=== PATIENT | male | born 1985 | race African-American/Black ===

== ENCOUNTER 2020-11-22 09:50 | Emergency (ER) | payer OTHER ==
[~2020-11-22] VITALS: Ht 170.2 cm; Wt 75.3 kg
[2020-11-22] MEDS ORDERED: NS 1,000 ML IV ONE (11:00)
[2020-11-22] MEDS ORDERED: ONDANSETRON 4MG/2ML VIAL IV ONE (11:00)
[2020-11-22] MEDS ORDERED: MORPHINE 4 MG/ML 1ML VIAL/SYRINGE (J2270) IV ONE (11:00)
[2020-11-22 11:12] LABS: BASO % 0.5 % (0.0-1.0); EOS # 0.2 10^3/uL (0.0-0.5); EOS % 3.9 % (0.0-3.0); HEMATOCRIT 44.1 % (42.0-52.0); HEMOGLOBIN 14.5 g/dl (13.5-17.5); LYMPH # 1.9 10^3/uL (1.5-5.0); LYMPH % 49.4 % (24.0-44.0); MEAN CORPUSCULAR HEMOGLOBIN 28.3 pg (27.0-33.0); MEAN CORPUSCULAR HGB CONC 32.9 g/dl (32.0-36.5); MONO # 0.3 10^3/uL (0.0-0.8); MONO % 8.3 % (0.0-5.0); NEUTROPHILS # 1.5 10^3/uL (1.5-8.5); NEUTROPHILS % 37.9 % (36.0-66.0); PLATELET COUNT, AUTOMATED 255 10^3/uL (150-450); RED BLOOD COUNT 5.13 10^6/uL (4.30-6.10); WHITE BLOOD COUNT 3.9 10^3/uL (4.0-10.0)
[2020-11-22] MEDS ORDERED: KETOROLAC 30 MG/ML 1ML VIAL IV ONE ×2 (11:45→14:00)
[2020-11-22 11:47] LABS: ALBUMIN 3.8 GM/DL (3.2-5.2); BILIRUBIN,DIRECT 0.2 MG/DL (0.0-0.2); TOTAL PROTEIN 7.1 GM/DL (6.4-8.2)
[2020-11-22] MEDS ORDERED: ISOVUE-370 76% 100ML VIAL As Ordered ONE (11:57)
--- NOTE | 2020-11-22 12:26 | REP ---
INDICATION: right abd pain possible appy COMPARISON: None. TECHNIQUE: CT Scan of the abdomen and pelvis was performed with intravenous administration of 100 cc of Isovue 370, without oral contrast. Sagittal and coronal reconstruction images are performed. FINDINGS: Lung bases: Unremarkable. Liver: Normal Gallbladder: Unremarkable. Spleen: Normal. Adrenals: Normal. Pancreas: Normal. Kidneys: Normal. Small and large bowel: Unremarkable. Free fluid: None. Abdominal aorta: No aneurysm or dissection. Adenopathy: None. Appendix: Not inflamed. Osseous structures: Unremarkable. Pelvis: No mass. IMPRESSION: Negative CT abdomen and pelvis. <Electronically signed by Oscar Carty > 11/22/20 [id number]
[2020-11-22] MEDS ORDERED: KETO10TAB PO (14:09)
[2020-11-22 14:26] VITALS: BP 133/72
== END 2020-11-22 14:29 | disposition home or self-care (01) ==
LOC: M ED 09:50
DX: R10.11 Right upper quadrant pain (principal); R10.31 Right lower quadrant pain
CPT/HCPCS: 74177; 80047; 80076; 85025; 96361; 96374; 96375; 99283; J1885; J2270; J2405; Q9967

== ENCOUNTER 2021-09-10 19:09 | Emergency (ER) | payer OTHER ==
[~2021-09-10] VITALS: Ht 198.1 cm; Wt 77.7 kg
[~2021-09-10 19:09] MED LIST: KETO10TAB PO
[2021-09-11] MEDS ORDERED: ACET-683 PO (12:01)
== END 2021-09-10 19:10 | disposition left against medical advice (07) ==
LOC: M ED 19:09
DX: Z53.21 Procedure and treatment not carried out due to patient leaving prior to being seen by health care provider (principal)

== ENCOUNTER 2021-09-10 22:54 | Inpatient (IN) | payer OTHER ==
[~2021-09-10] VITALS: Ht 198.1 cm; Wt 79.5 kg
[2021-09-11 00:25] LABS: RSV AMPLIFICATION NEGATIVE (NEGATIVE)
[2021-09-11 07:25] LABS: HEMATOCRIT 43.8 % (42.0-52.0); HEMOGLOBIN 14.5 g/dl (13.5-17.5); MEAN CORPUSCULAR HEMOGLOBIN 28.8 pg (27.0-33.0); MEAN CORPUSCULAR HGB CONC 33.1 g/dl (32.0-36.5); MEAN CORPUSCULAR VOLUME 86.9 fl (80.0-96.0); RED BLOOD COUNT 5.04 10^6/uL (4.30-6.10); WHITE BLOOD COUNT 4.7 10^3/uL (4.0-10.0)
[2021-09-11 07:54] LABS: ALBUMIN 2.9 GM/DL (3.2-5.2); ALT/SGPT 39 U/L (12-78); BILIRUBIN,DIRECT 0.5 MG/DL (0.0-0.2); BILIRUBIN,TOTAL 2.2 MG/DL (0.2-1.0); BLOOD UREA NITROGEN 20 MG/DL (7-18); CALCIUM LEVEL 8.9 MG/DL (8.5-10.1); CARBON DIOXIDE LEVEL 30 MEQ/L (21-32); CHLORIDE LEVEL 102 MEQ/L (98-107); CREATININE FOR GFR 1.21 MG/DL (0.70-1.30); GLOMERULAR FILTRATION RATE > 60.0 (>60); GLUCOSE, FASTING 88 MG/DL (70-100); POTASSIUM SERUM 3.6 MEQ/L (3.5-5.1); SODIUM LEVEL 137 MEQ/L (136-145); TOTAL PROTEIN 7.7 GM/DL (6.4-8.2)
[2021-09-11 08:02] LABS: PLATELET COUNT, AUTOMATED 92 10^3/uL (150-450)
[2021-09-11 08:05] LABS: ATYPICAL LYMPH 5 % (0-5); EOSINOPHILS 2 % (0-3); LYMPHOCYTES 28 % (16-44); MONOCYTES 20 % (0-5); NEUTROPHILS 45 % (28-66); PLATELET ESTIMATE DECREASED (NORMAL)
[2021-09-11 08:08] LABS: ANISOCYTOSIS 1+; POLYCHROMASIA 1+
[2021-09-11] MEDS ORDERED: ONDANSETRON 4MG/2ML VIAL IV ONE (08:10)
[2021-09-11] MEDS ORDERED: NS 1,000 ML IV ONE (08:10)
[2021-09-11] MEDS ORDERED: ACETAMINOPHEN 325 MG TAB PO ONE (08:10)
--- NOTE | 2021-09-11 08:33 | REP ---
INDICATION: fever, headache x 7 days, getting worse COMPARISON: None. TECHNIQUE: Axial noncontrast images from the skull base to the vertex with coronal reformations. This CT examination was performed using the following dose reduction techniques: Automated exposure control, adjustment of mA and/or kv according to the patient's size, and use of iterative reconstruction technique. FINDINGS: The ventricles, sulci, and cisterns are normal in position and appearance. Carty-white differentiation is maintained. No acute intracranial hemorrhage, mass/mass effect, pathology or trauma/injury. No evidence for acute infarction. No extra-axial fluid collection. Calvarium is intact. Paranasal sinuses and mastoid air cells are clear. IMPRESSION: Normal noncontrast head CT. No evidence for acute intracranial pathology or trauma/injury. <Electronically signed by Aman Ojeda > 09/11/21 [id number]
--- NOTE | 2021-09-11 08:54 | REP ---
INDICATION: RUQ pain, fever, n/v/d COMPARISON: None. TECHNIQUE: Real time marie scale ultrasound examination using curved array transducer. FINDINGS: Liver is normal in contour, size, and echogenicity without focal hepatic lesions identified. Pancreas is incompletely evaluated due to interposed bowel gas. The gallbladder demonstrates layering and tumefactive sludge. No wall thickening or pericholecystic fluid is appreciated. No biliary ductal dilatation is appreciated and the common bile duct measures 4.0 mm diameter. Right kidney is normal in reniform shape without hydronephrosis and measures 10.1 x 5.5 x 4.2 cm cm. No ascites in the visualized right upper quadrant. IMPRESSION: Cholelithiasis. <Electronically signed by Aman Ojeda > 09/11/21 [id number]
--- NOTE | 2021-09-11 08:55 | REP ---
INDICATION: fever, cough, vomiting COMPARISON: None. TECHNIQUE: PA and lateral. FINDINGS: The mediastinum and cardiac silhouette are normal. The lung hensley are clear and without acute consolidation, effusion, or pneumothorax. The skeletal structures are intact and normal. IMPRESSION: No acute cardiopulmonary process. <Electronically signed by Aman Ojeda > 09/11/21 0816
[2021-09-11] MEDS ORDERED: MALARONE 250/100MG (ATOVAQUONE/PROGUANIL) TABLET PO SCH (09:00)
[2021-09-11] MEDS ORDERED: MALARONE 250/100MG (ATOVAQUONE/PROGUANIL) TABLET PO STA (11:48)
[2021-09-11] MEDS ORDERED: ACET-683 PO (12:01)
[2021-09-11] MEDS ORDERED: HOME MED LIST COMPLETE! XX SCH (12:05)
--- OUTSIDE RECORDS SUMMARY | 2021-09-11 12:40 | CCD ---
Author Author [facility] Organization [facility] Address Unknown Phone Unavailable Care Team Providers Care Sharepoint Solutions Developer Name Role Phone Olivier Trinidad MD Unavailable Unavailable Amos, Olivier Oliveira MD Unavailable Unavailable Amos, Olivier Oliveira MD Unavailable Unavailable Amos, Olivier Oliveira MD Unavailable Unavailable Amos, Olivier Oliveira MD Unavailable Unavailable Amos, Olivier Oliveira MD Unavailable Unavailable Amos, Olivier Oliveira MD Unavailable Unavailable Amos, Olivier Oliveira MD Unavailable Unavailable Amos, Olivier Oliveira MD Unavailable Unavailable Amos, Olivier Oliveira MD Unavailable Unavailable Amos, Olivier Oliveira MD Unavailable Unavailable Amos, Olivier Oliveira MD Unavailable Unavailable Amos, Olivier Oliveira MD Unavailable Unavailable Amos, Olivier Oliveira MD Unavailable Unavailable Amos, Olivier Oliveira MD Unavailable Unavailable AmosOlivier MD Unavailable Unavailable Amos, Olivier Oliveira MD Unavailable Unavailable Amos, Olivier Oliveira MD Unavailable Unavailable Amos, Olivier Oliveira MD Unavailable Unavailable Amos, Olivier Oliveira MD Unavailable Unavailable Amos, Olivier Oliveira MD Unavailable Unavailable Amos, Olivier Oliveira MD Unavailable Unavailable Amos, Olivier Oliveira MD Unavailable Unavailable Amos, Olivier Oliveira MD Unavailable Unavailable Amos, Olivier Oliveira MD Unavailable Unavailable AmosOlivier MD Unavailable Unavailable AmosOlivier hopson MD Unavailable Unavailable AmosOlivier MD Unavailable Unavailable AmosOlivier MD Unavailable Unavailable AmosOlivier MD Unavailable Unavailable AmosOlivier MD Unavailable Unavailable AmosOlivier MD Unavailable Unavailable AmosOlivier MD Unavailable Unavailable AmosOlivier MD Unavailable Unavailable AmosOlivier hopson MD Unavailable Unavailable Amos, Olivier Oliveira MD Unavailable Unavailable Amos, Olivier Oliveira MD Unavailable Unavailable Amos, Olivier Oliveira MD Unavailable Unavailable Amos, Olivier Oliveira MD Unavailable Unavailable Amos, Olivier Oliveira MD Unavailable Unavailable Amos, Olivier Oliveira MD Unavailable Unavailable Amos, Olivier Oliveira MD Unavailable Unavailable Re-disclosure Warning The records that you are about to access may contain information from federally-assisted alcohol or drug abuse programs. If such information is present, then the following federally mandated warning applies: This information has been disclosed to you from records protected by federal confidentiality rules (42 CFR part 2). The federal rules prohibit you from making any further disclosure of this information unless further disclosure is expressly permitted by the written consent of the person to whom it pertains or as otherwise permitted by 42 CFR part 2. A general authorization for the release of medical or other information is NOT sufficient for this purpose. The Federal rules restrict any use of the information to criminally investigate or prosecute any alcohol or drug abuse patient.The records that you are about to access may contain highly sensitive health information, the redisclosure of which is protected by Article 27-F of the [facility] Public Health law. If you continue you may have access to information: Regarding HIV / AIDS; Provided by facilities licensed or operated by the [facility] Office of Mental Health; or Provided by the [facility] Office for People With Developmental Disabilities. If such information is present, then the following [facility] mandated warning applies: This information has been disclosed to you from confidential records which are protected by state law. State law prohibits you from making any further disclosure of this information without the specific written consent of the person to whom it pertains, or as otherwise permitted by law. Any unauthorized further disclosure in violation of state law may result in a fine or mcfp sentence or both. A general authorization for the release of medical or other information is NOT sufficient authorization for further disc losure. Encounters Encounter Providers Location Date Indications Data Source(s ) Outpatient Attender: Tee Trinidad MD 2020 10:26:00 AM EDT - 05/02/2021 10:26:00 AM EDT [facility] Medications No Information Insurance Providers Payer name Policy type / Coverage type Policy ID Covered republican ID Covered republican's relationship to arevalo Policy Arevalo Plan Information [facility] [employer] [id number] SP [id number] [facility] [place] [place] [id number] 18 [id number] [employer] [facility] [place] [id number] S [id number] Problems, Conditions, and Diagnoses No Information Surgeries/Procedures No Information Results ID Date Data Source [id number] 07/31/2021 08:32:00 PM EDT [facility] Name Value Range Interpretation Code Description Data Niurka rce(s) Supporting Document(s) SARS coronavirus 2 RNA [Presence] in Res piratory specimen by ARIC with probe detection Not Detected [facility] This lab was ordered by [facility] and re ported by [employer]. ID Date Data Source [id number] 07/31/2021 04:32:00 PM EDT [facility] Name Value Range Interpretation Code Description Data Niurka rce(s) Supporting Document(s) SARS-CoV-2 NEGATIVE [facility] This lab was ordered by [facility] and reported by [facility]. ID Date Data Source [id number] 06/11/2021 07:13:00 PM EDT [facility] Name Value Range Interpretation Code Description Data Niurka rce(s) Supporting Document(s) SARS coronavirus 2 RNA [Presence] in Res piratory specimen by ARIC with probe detection anterior nasal swabs [facility] This lab was ordered by [facility] and re ported by [employer]. ID Date Data Source [id number] 06/11/2021 03:13:00 PM EDT [facility] Name Value Range Interpretation Code Description Data Niurka rce(s) Supporting Document(s) SARS-CoV-2 NEGATIVE [facility] This lab was ordered by [facility] and reported by [facility]. ID Date Data Source [id number] 04/16/2021 10:20:00 AM EDT [facility] Name Value Range Interpretation Code Description Data Niurka rce(s) Supporting Document(s) SARS-CoV-2 NEGATIVE [facility] This lab was ordered by [facility] and reported by [facility]. ID Date Data Source [id number] 04/16/2021 12:00:00 AM EDT [facility] Name Value Range Interpretation Code Description Data Niurka rce(s) Supporting Document(s) SARS-CoV-2 RT-PCR negative [facility] This lab was ordered by [facility] and re ported by [employer]. ID Date Data Source [id number] 04/13/2021 12:00:00 AM EDT [facility] Name Value Range Interpretation Code Description Data Niurka rce(s) Supporting Document(s) SARS-CoV2 Rapid Antigen Negative [facility] This lab was ordered by [facility] and reported by [facility]. Procedure Social History No Information Vital Signs ID Date Data Source UNK Name Value Range Interpretation Code Description Data Source(s) Systolic blood pressure 122 mm[Hg] 122 mm[Hg] [facility] ([facility]) Diastolic blood pressure 76 mm[Hg] 76 mm[Hg] [facility] ([facility]) Heart rate 77 /min 77 /min [facility] ([facility]) Body temperature 98.2 [degF] 98.2 [degF] [facility] ([facility]) Respiratory rate 16 /min 16 /min [facility] ( [facility]) Oxygen saturation in Arterial blood by Pulse oximetry 98 % 98 % [facility] ([facility]) Body weight 132.12 [lb_av] 132.12 [lb_av] [facility] ([facility]) Body weight 59.932 kg 59.932 kg [facility] ([facility]) Body height 66 [in_i] 66 [in_i] [facility] ([facility]) 5'6" Body mass index (BMI) [Ratio] 21.3 kg/m2 21.3 k g/m2 [facility] ([facility]) Body surface area Derived from formula 1.68 m2 1.68 m2 [facility] ([facility])
[2021-09-11 12:58] LABS: INR 1.16; PROTHROMBIN TIME 15.2 SECONDS (12.7-14.5)
[2021-09-11 12:59] LABS: PARTIAL THROMBOPLASTIN TIME 35.5 SECONDS (25.9-37.0)
[2021-09-11] MEDS: SUCRALFATE SUSP 1GM/10ML UD PO SCH ×3 (13:04→20:42)
[2021-09-11] MEDS: ENOXAPARIN 40MG/0.4ML SYRINGE (J1650 PER 10MG) SC SCH (13:04)
--- NOTE | 2021-09-11 14:00 | HPEPDOC ---
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 History of Present Illness Mr. Pena is a 36-year-old male who is here for fever, poor appetite, and nausea and vomiting and found to have malaria. Patient tells me that he travels to [place] on August 09 to visit family. He took prophylactic doxycycline (1 tablet a day). While there, he did get bitten by mosquitoes. He returned on August 25 and continued to take prophylactic doxycycline until September 06. He for started having symptoms on September 04. It initially started as a head ache. He started to have fevers on September 07. On September 09, he had nausea, vomiting, and loss of taste. He told me that he was not able to keep food down. On September 10, he came in to the ED for evaluation. He had developed eye pain with eye movement and a bumpy rash on the right corner of the mouth. While in the ED, his vital signs has been stable and he had been afebrile. Malaria smear positive for Plasmodium falciparum. No leukocytosis or anemia, but his total bilirubin is elevated (mostly indirect). BUN elevated at 20, creatinine slightly elevated at 1.21. When I saw patient, he appeared comfortable. He preferred to have the light off, but is able to tuck in chin into his chest. He was moving all limbs without difficulty. Denies any chest pain, dyspnea, diarrhea, or dysuria. He had some right sided abdominal pain. He denied any history of HIV or sickle cell disease or trait in himself or parents. ED had reached out to ID. Recommending starting patient on atovaquone/proguanil (Malarone). Patient will be admitted for malaria infection. Home Medications Scheduled PRN Acetaminophen (Acetaminophen) 500 Mg Tablet, 1,000 MG PO Q6H PRN for PAIN LEVEL 1-5, (Reported) Allergies Coded Allergies: No Known Allergies (Unverified , 11/22/20) Past Medical History Medical History 1. Remote history of malaria infection in the past Surgical History 1. Hernia repair Family History Denies any medical history in parents. Denies sickle cell/sickle cell trait. Social History * Smoker: Denies Alcohol: Denies Drugs: denies A-FIB/CHADSVASC A-FIB History Current/History of A-Fib/PAF?: No Review of Systems Constitutional: Reports: Fever, Malaise Eyes: Reports: Other (Pain with eye movement) ENT: Reports: Head Aches Skin: Reports: Rash (Corner of the right mouth) Pulmonary: Denies: Dyspnea, Cough Cardiovascular: Denies: Chest Pain Gastrointestinal: Reports: Nausea, Vomiting, Abdominal Pain, Other Symptoms (Unable to tolerate oral); Denies: Diarrhea Genitourinary: Denies: Dysuria Hematologic: Denies: Bruising Neurological: Denies: Numbness Psych: Denies: Anxiety, Depression Physical Examination General Exam: Positive: Alert, Cooperative Eye Exam: Positive: Other Eye Symptoms (Mild icterus with erythema. Painful to move eyes ) ENT Exam: Positive: Atraumatic Neck Exam: Positive: Supple Chest Exam: Positive: Clear to auscultation; Negative: Rales, Rhonchi, Wheezing Heart Exam: Positive: Rate Normal, Regular Rhythm Abdomen Exam: Positive: Normal bowel sounds, Soft; Negative: Tenderness Extremity Exam: Negative: Edema Neuro Exam: Positive: Normal Speech Psych Exam: Positive: Mental status NL, Mood NL Vital Signs Vital Signs Date Time Temp Pulse Resp B/P (MAP) Pulse Ox O2 Delivery O2 Flow Rate FiO2 09/11/21 11:25 105/55 (72) 09/11/21 10:43 98.0 09/11/21 09:57 86 15 99 Room Air Laboratory Data Labs 24H Laboratory Tests 2 09/10/21 23:21: Coronavirus (COVID-19)(PCR) NEGATIVE, Influenza Type A (RT-PCR) NEGATIVE, Influenza Type B (RT-PCR) NEGATIVE, Respiratory Syncytial Virus (PCR) NEGATIVE 09/11/21 07:10: Neutrophils (%) (Auto) , Nucleated Red Blood Cells % (auto) 0.0, Neutrophils 45, Lymphocytes (Manual) 28, Monocytes (Manual) 20H, Eosinophils (Manual) 2, Atypical Lymphocytes 5, Red Blood Cell Morphology PARASITES, Polychromasia 1+, Anisocytosis 1+, Platelet Estimate DECREASED, Immature Platelet Fraction 8.9, Anion Gap 5L, Glomerular Filtration Rate > 60.0, Calcium Level 8.9, Total Bilirubin 2.2H, Direct Bilirubin 0.5H, Aspartate Amino Transf (AST/SGOT) 32, Alanine Aminotransferase (ALT/SGPT) 39, Alkaline Phosphatase 68, Total Protein 7.7, Albumin 2.9L, Albumin/Globulin Ratio 0.6 09/11/21 10:52: Lactic Acid Level 1.1 09/11/21 11:15: Urine Color YELLOW, Urine Appearance HAZY, Urine pH 6.0, Urine Specific [place] 1.019, Urine Protein 1+H, Urine Glucose (UA) NEGATIVE, Urine Ketones 1+H, Urine Blood NEGATIVE, Urine Nitrite NEGATIVE, Urine Bilirubin NEGATIVE, Urine Urobilinogen 4.0H, Urine Leukocyte Esterase NEGATIVE, Urine WBC (Auto) 2, Urine RBC (Auto) 1, Urine Hyaline Casts (Auto) 0, Urine Bacteria (Auto) NEGATIVE, Urine Squamous Epithelial Cells 0, Urine Mucus (Auto) SMALL, Urine Sperm (Auto) 09/11/21 12:27: Prothrombin Time 15.2H, Prothromb Time International Ratio 1.16, Activated Partial Thromboplast Time 35.5 CBC/BMP Laboratory Tests 09/11/21 07:10 Microbiology Microbiology 09/11/21 Blood Culture, Received Pending 09/11/21 Blood Culture, Received Pending 09/11/21 Malaria Smear (MARELY) - Final, Complete Plasmodium Falciparum Assessment/Plan Mr. Pena is a 36-year-old male who is here for fever, poor appetite, and nausea and vomiting and found to have malaria. Patient had taken Doxycycline for malaria prophylaxis as a travel to [place]. Despite prophylaxis, he developed malaria. ID was consulted, recommendations appreciated. Patient started on Malarone. Plan / VTE VTE Prophylaxis Ordered?: Yes Plan Plan 1. Malaria infection ID consulted, recommendations appreciated Continue Malarone day 1 2. Anorexia secondary to nausea and vomiting Start patient on a clear liquid diet and advance as tolerated IV fluids Start Carafate and famotidine 3. Hyperbilirubinemia Total bilirubin elevated at 2.2. Most likely secondary to hemolysis from malaria Monitor hemoglobin We will check LDH and haptoglobin tomorrow 4. DVT prophylaxis Lovenox Disposition: Pending clinical improvement SARAH LOPEZ DO Sep 11, 2021 14:00
[2021-09-11 14:43] VITALS: BP 101/64
[2021-09-11] MEDS: ACETAMINOPHEN TAB 650MG DOSE (2X325MG) PO PRN (14:58)
[2021-09-11] MEDS: NS 1,000 ML IV SCH ×2 (14:59→23:53)
[2021-09-11] MEDS ORDERED: ACETAMINOPHEN TAB 650MG DOSE (2X325MG) PO ONE (17:45)
--- NOTE | 2021-09-11 18:37 | CR.PDOC ---
General Date of Consultation: Sep 11, 2021 Referring Provider: SARAH LOPEZ DO Attending Physician: Luis Medrano MD Consultation REASON FOR CONSULTATION/CHIEF COMPLAINT: Malaria due to Plasmodium Falciparum. HISTORY OF PRESENT ILLNESS: Boni is a 36 year old male who presented to the emergency room complaining of fever, headache, nausea, and vomiting. He recently travelled to [facility] to visit family from 08/10 to 08/25, during which time he took Doxycycline for Malaria prophylaxis one pill per day from 08/10 to 09/07. On 09/04 he began to suffer from fevers and headaches. These occur together and are intermittent and cyclic in nature. He noticed loss of taste sensation on 09/06 and has been unable to eat without vomiting since 09/08. He has also felt weak and fatigued for the past day, but says that he was able to do his normal activities up until then. He was admitted for a diagnosis of Malaria. ALLERGIES: Please see below. HOME MEDICATIONS: Please see below. PAST MEDICAL HISTORY: 1. Past Malaria infection 2005 PAST SURGICAL HISTORY: 1. Hernia repair SOCIAL HISTORY: Marital status and/or living arrangements: , lives in [place]. He is in the . Children: Yes, but they live in [place] Employment: Tobacco use: Denies ETOH: Denies Illicit drug use: Denies IV drug use: Denies REVIEW OF SYSTEMS: CONSTITUTIONAL: Has fevers, chills, and fatigue. HEENT: Has headache and loss of taste, denies vision changes, sore throat. CARDIOVASCULAR: Denies chest pain RESPIRATORY: Denies shortness of breath GASTROINTESTINAL: Has nausea and vomiting, denies abdominal pain and loose stools. SKIN: Has a rash on his face. PHYSICAL EXAMINATION: VITAL SIGNS: Please see below. GENERAL APPEARANCE: Thin male laying in bed in no acute distress. He is alert and oriented and responds appropriately to all questions. HEENT: Non traumatic normocephalic. He has a bumpy rash near his mouth. RESPIRATORY: CTA CARDIOVASCULAR: Normal rate and rhythm without murmurs. ABDOMEN: Bowel sounds present. Non-tender and non-distended. LABORATORY DATA: Please see below. Positive smear for Plasmodium Falciparum. His WBC and RBC counts were both within normal ranges. His total bilirubin was elevated at 2.2. ASSESSMENT/PLAN: He was diagnosed with a breakthrough infection with Plasmodium Falciparum despite prophylaxis with Doxycycline until days after his return from [facility]. It is recommended to take Doxycycline for 4 weeks after exposure for Malaria prophylaxis and his shortened course may have contributed to his illness. His condition has no severe features at this time. 1. Treat with Malarone 250-100mg 4 tabs daily for 3 days. 2. Discharge home tomorrow 3. Follow up after discharge to assess recovery and recheck bilirubin and liver function tests Vital Signs/I&O Vital Signs Date Time Temp Pulse Resp B/P (MAP) Pulse Ox O2 Delivery O2 Flow Rate FiO2 09/11/21 17:32 102.9 09/11/21 14:43 83 16 101/64 (76) 100 Room Air Laboratory Data Labs 24H Laboratory Tests 2 09/10/21 23:21: Coronavirus (COVID-19)(PCR) NEGATIVE, Influenza Type A (RT-PCR) NEGATIVE, Influenza Type B (RT-PCR) NEGATIVE, Respiratory Syncytial Virus (PCR) NEGATIVE 09/11/21 07:10: Neutrophils (%) (Auto) , Nucleated Red Blood Cells % (auto) 0.0, Neutrophils 45, Lymphocytes (Manual) 28, Monocytes (Manual) 20H, Eosinophils (Manual) 2, Atypi sophie Lymphocytes 5, Red Blood Cell Morphology PARASITES, Polychromasia 1+, Anisocytosis 1+, Platelet Estimate DECREASED, Immature Platelet Fraction 8.9, Anion Gap 5L, Glomerular Filtration Rate > 60.0, Calcium Level 8.9, Total Bilirubin 2.2H, Direct Bilirubin 0.5H, Aspartate Amino Transf (AST/SGOT) 32, Alanine Aminotransferase (ALT/SGPT) 39, Alkaline Phosphatase 68, Total Protein 7.7, Albumin 2.9L, Albumin/Globulin Ratio 0.6 09/11/21 10:52: Lactic Acid Level 1.1 09/11/21 11:15: Urine Color YELLOW, Urine Appearance HAZY, Urine pH 6.0, Urine Specific [place] 1.019, Urine Protein 1+H, Urine Glucose (UA) NEGATIVE, Urine Ketones 1+H, Urine Blood NEGATIVE, Urine Nitrite NEGATIVE, Urine Bilirubin NEGATIVE, Urine Urobilinogen 4.0H, Urine Leukocyte Esterase NEGATIVE, Urine WBC (Auto) 2, Urine RBC (Auto) 1, Urine Hyaline Casts (Auto) 0, Urine Bacteria (Auto) NEGATIVE, Urine Squamous Epithelial Cells 0, Urine Mucus (Auto) SMALL, Urine Sperm (Auto) 09/11/21 12:27: Prothrombin Time 15.2H, Prothromb Time International Ratio 1.16, Activated Partial Thromboplast Time 35.5 CBC/BMP Laboratory Tests 09/11/21 07:10 Microbiology Microbiology 09/11/21 Blood Culture, Received Pending 09/11/21 Blood Culture, Received Pending 09/11/21 Malaria Smear (MARELY) - Final, Complete Plasmodium Falciparum Allergies Coded Allergies: No Known Allergies (Unverified , 11/22/20) Home Medications Scheduled PRN Acetaminophen (Acetaminophen) 500 Mg Tablet, 1,000 MG PO Q6H PRN for PAIN LEVEL 1-5 for 5 Days, (Reported) [facility] [place] Sep 11, 2021 18:37
[2021-09-11] MEDS: FAMOTIDINE 20 MG TAB PO SCH (20:42)
[2021-09-11 22:00] VITALS: BP 94/62
[2021-09-11] MEDS ORDERED: NS 500 ML IV ONE (22:40)
--- NOTE | 2021-09-11 23:29 | ECGEPIP ---
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
[2021-09-12 02:48] VITALS: BP 96/60
[2021-09-12 06:00] VITALS: BP 100/60
[2021-09-12 06:43] LABS: HEMATOCRIT 37.1 % (42.0-52.0); MEAN CORPUSCULAR HEMOGLOBIN 28.3 pg (27.0-33.0); MEAN CORPUSCULAR HGB CONC 32.6 g/dl (32.0-36.5); MEAN CORPUSCULAR VOLUME 86.7 fl (80.0-96.0); RED BLOOD COUNT 4.28 10^6/uL (4.30-6.10); WHITE BLOOD COUNT 3.1 10^3/uL (4.0-10.0)
[2021-09-12 06:44] LABS: PLATELET COUNT, AUTOMATED 90 10^3/uL (150-450)
[2021-09-12 06:45] LABS: HEMOGLOBIN 12.1 g/dl (13.5-17.5)
[2021-09-12 07:05] LABS: BLOOD UREA NITROGEN 14 MG/DL (7-18); CARBON DIOXIDE LEVEL 26 MEQ/L (21-32); CHLORIDE LEVEL 108 MEQ/L (98-107); GLOMERULAR FILTRATION RATE > 60.0 (>60); GLUCOSE, FASTING 91 MG/DL (70-100); LDH LACTATE DEHYDROGENASE 313 U/L (87-241); POTASSIUM SERUM 3.4 MEQ/L (3.5-5.1); SODIUM LEVEL 140 MEQ/L (136-145)
[2021-09-12] MEDS ORDERED: POTASSIUM CHLORIDE 10MEQ SR TABLET PO ONE (08:00)
[2021-09-12] MEDS: SUCRALFATE SUSP 1GM/10ML UD PO SCH ×4 (08:25→22:08)
[2021-09-12] MEDS: ONDANSETRON 4MG/2ML VIAL IV PRN (08:27)
[2021-09-12] MEDS: MALARONE 250/100MG (ATOVAQUONE/PROGUANIL) TABLET PO SCH (08:48)
[2021-09-12] MEDS: ENOXAPARIN 40MG/0.4ML SYRINGE (J1650 PER 10MG) SC SCH (09:00)
[2021-09-12] MEDS: NS 1,000 ML IV SCH ×2 (14:05→22:08)
--- NOTE | 2021-09-12 21:08 | IPNPDOC ---
Subjective Date Seen The patient was seen on 09/12/21. Subjective Chief Complaint/HPI Mr. Pena is a 36-year-old male who is here for fever, poor appetite, and nausea and vomiting and found to have malaria. This morning, he was not feeling well. He had fevers throughout the night and into the morning. Objective Physical Examination General Exam: Positive: Alert, Cooperative Eye Exam: Positive: Other Eye Symptoms (Mild icterus with erythema. Painful to move eyes ) ENT Exam: Positive: Atraumatic Neck Exam: Positive: Supple Chest Exam: Positive: Clear to auscultation; Negative: Rales, Rhonchi, Wheezing Heart Exam: Positive: Rate Normal, Regular Rhythm Abdomen Exam: Positive: Normal bowel sounds, Soft; Negative: Tenderness Extremity Exam: Negative: Edema Neuro Exam: Positive: Normal Speech Psych Exam: Positive: Mental status NL, Mood NL Assessment /Plan Assessment Mr. Pena is a 36-year-old male who is here for fever, poor appetite, and nausea and vomiting and found to have malaria. Patient had taken Doxycycline for malaria prophylaxis as a travel to [place]. Despite prophylaxis, he developed malaria. ID was consulted, recommendations appreciated. Patient started on Malarone. Plan/VTE VTE Prophylaxis Ordered?: Yes Plan 1. Malaria infection ID consulted, recommendations appreciated Continue Malarone day 2 2. Anorexia secondary to nausea and vomiting Start patient on a clear liquid diet and advance as tolerated. Patient now at regular diet IV fluids Continue Carafate and famotidine 3. Hyperbilirubinemia Total bilirubin elevated at 2.2. Most likely secondary to hemolysis from malaria Monitor hemoglobin 4. DVT prophylaxis Lovenox Disposition: Pending clinical improvement VS, I&O, 24H, Amena Vital Signs/I&O Vital Signs Date Time Temp Pulse Resp B/P (MAP) Pulse Ox O2 Delivery O2 Flow Rate FiO2 09/12/21 06:00 100.8 94 18 100/60 (73) 99 Room Air I&O- Last 24 Hours up to 6 AM 09/12/21 06:00 Intake Total 3590 ml Output Total 175 ml Balance 3415 ml Laboratory Data 24H LABS Laboratory Tests 2 09/12/21 06:16: Nucleated Red Blood Cells % (auto) 0.0, Anion Gap 6L, Glomerular Filtration Rate > 60.0, Calcium Level 8.0L, Lactate Dehydrogenase 313H CBC/BMP Laboratory Tests 09/12/21 06:16 Microbiology Microbiology 09/11/21 Blood Culture - Preliminary, Resulted No growth after 24 hours . All specim... 09/11/21 Blood Culture - Preliminary, Resulted No growth after 24 hours . All specim... 09/11/21 Malaria Smear ([facility]) - Final, Complete Plasmodium Falciparum SARAH LOPEZ DO Sep 12, 2021 21:08
[2021-09-12 22:00] VITALS: BP 97/55
[2021-09-12] MEDS: FAMOTIDINE 20 MG TAB PO SCH (22:08)
[2021-09-13 06:00] VITALS: BP 95/56
[2021-09-13 06:47] LABS: BLOOD UREA NITROGEN 10 MG/DL (7-18); CALCIUM LEVEL 8.1 MG/DL (8.5-10.1); CARBON DIOXIDE LEVEL 27 MEQ/L (21-32); CHLORIDE LEVEL 112 MEQ/L (98-107); CREATININE FOR GFR 1.09 MG/DL (0.70-1.30); GLOMERULAR FILTRATION RATE > 60.0 (>60); GLUCOSE, FASTING 89 MG/DL (70-100); POTASSIUM SERUM 3.6 MEQ/L (3.5-5.1); SODIUM LEVEL 143 MEQ/L (136-145)
[2021-09-13 07:36] LABS: HEMATOCRIT 37.5 % (42.0-52.0); HEMOGLOBIN 12.3 g/dl (13.5-17.5); MEAN CORPUSCULAR HEMOGLOBIN 28.4 pg (27.0-33.0); MEAN CORPUSCULAR HGB CONC 32.8 g/dl (32.0-36.5); MEAN CORPUSCULAR VOLUME 86.6 fl (80.0-96.0); PLATELET COUNT, AUTOMATED 115 10^3/uL (150-450); RED BLOOD COUNT 4.33 10^6/uL (4.30-6.10); WHITE BLOOD COUNT 3.7 10^3/uL (4.0-10.0)
[2021-09-13] MEDS: SUCRALFATE SUSP 1GM/10ML UD PO SCH (07:49)
[2021-09-13] MEDS: ONDANSETRON 4MG/2ML VIAL IV PRN (07:49)
[2021-09-13] MEDS: ACETAMINOPHEN TAB 650MG DOSE (2X325MG) PO PRN (08:47)
[2021-09-13] MEDS: MALARONE 250/100MG (ATOVAQUONE/PROGUANIL) TABLET PO SCH (08:48)
[2021-09-13] MEDS: ENOXAPARIN 40MG/0.4ML SYRINGE (J1650 PER 10MG) SC SCH (08:48)
[2021-09-13] MEDS ORDERED: ATOV1TAB PO ×2 (09:37→09:39)
[2021-09-13] MEDS ORDERED: ACET-683 PO (09:37)
--- NOTE | 2021-09-13 22:55 | DS.PDOC ---
Discharge Summary General Date of Admission Sep 11, 2021 at 12:20 Date of Discharge Sep 13, 2021 Specialist/Consultants Involve Dr. Mitchell GREY Discharge Summary PROCEDURES PERFORMED DURING STAY: None ADMITTING DIAGNOSES: 1. Malaria infection 2. Anorexia secondary to nausea and vomiting 3. Hyperbilirubinemia DISCHARGE DIAGNOSES: 1. Malaria infection 2. Anorexia secondary to nausea and vomiting 3. 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 HISTORY OF PRESENT ILLNESS: Mr. Pena is a 36-year-old male who is here for fever, poor appetite, and nausea and vomiting and found to have malaria. Patient tells me that he travels to [place] on August 09 to visit family. He took prophylactic doxycycline (1 tablet a day). While there, he did get bitten by mosquitoes. He returned on August 25 and continued to take prophylactic doxycycline until September 06. He for started having symptoms on September 04. It initially started as a headache. He started to have fevers on September 07. On September 09, he had nausea, vomiting, and loss of taste. He told me that he was not able to keep food down. On September 10, he came in to the ED for evaluation. He had developed eye pain with eye movement and a bumpy rash on the right corner of the mouth. While in the ED, his vital signs has been stable and he had been afebrile. Shaniqua trudy smear positive for Plasmodium falciparum. No leukocytosis or anemia, but his total bilirubin is elevated (mostly indirect). BUN elevated at 20, creatinine slightly elevated at 1.21. When I saw patient, he appeared comfortable. He preferred to have the light off, but is able to tuck in chin into his chest. He was moving all limbs without difficulty. Denies any chest pain, dyspnea, diarrhea, or dysuria. He had some right sided abdominal pain. He denied any history of HIV or sickle cell disease or trait in himself or parents. ED had reached out to ID. Recommending starting patient on atovaquone/proguanil (Malarone). Patient will be admitted for malaria infection. HOSPITAL COURSE: The day after admission, he was not feeling well. Still had fevers and poor appetite. Later that day, his condition improved. This morning, he felt well. He was afebrile. He was able to tolerate a diet. He felt ready for home. He was discharged with one more dose of Malarone for tomorrow. DISCHARGE MEDICATIONS: Please see below. ALLERGIES: Please see below. PHYSICAL EXAMINATION ON DISCHARGE: VITAL SIGNS: Please see below. GENERAL: Comfortable, in no apparent distress. NECK: Supple. RESPIRATORY: Lungs clear to auscultation bilaterally, no rales, wheeze or rhonchi. CARDIOVASCULAR: Regular rate and rhythm. ABDOMEN: Soft, nontender, no guarding or rebound tenderness. Normal bowel sounds. MUSCLE SKELETAL: Muscle strength 5/5 in all extremities. NEUROLOGICAL: CN 312 grossly intact, no focal deficits noted. PSYCHOLOGICAL: Normal mood and affect LABORATORY DATA: Please see below. IMAGING: Radiologist interpretation CT head without contrast Normal noncontrast head CT. No evidence for acute intracranial pathology or trauma/injury. US gallbladder Cholelithiasis. CXR No acute cardiopulmonary process. PROGNOSIS: Good ACTIVITY: As tolerated DIET: As tolerated DISCHARGE PLAN: Return home. Take last day of Malarone tomorrow. Follow up with PCP within 7 days DISPOSITION: 01 Home, Self-Care. DISCHARGE INSTRUCTIONS: 1. Follow up with PCP within 1 week ITEMS TO FOLLOWUP ON ON OUTPATIENT: 1. Bilirubin DISCHARGE CONDITION: Stable Total time spent on discharge planning, discharge summary, and medication reconciliation: 35 minutes Vital Signs/I&Os Vital Signs Date Time Temp Pulse Resp B/P (MAP) Pulse Ox O2 Delivery O2 Flow Rate FiO2 09/13/21 06:00 97.9 70 20 95/56 (69) 99 Room Air I&O- Last 24 Hours up to 6 AM 09/13/21 06:00 Intake Total 2520 ml Output Total 1125 ml Balance 1395 ml Laboratory Data Labs 24H Laboratory Tests 2 09/13/21 05:53: Nucleated Red Blood Cells % (auto) 0.0, Anion Gap 4L, Glomerular Filtration Rate > 60.0, Calcium Level 8.1L CBC/BMP Laboratory Tests 09/13/21 05:53 Microbiology Microbiology 09/13/21 Malaria Smear ([facility]) - Final, Complete 09/11/21 Blood Culture - Preliminary, Resulted No Growth after 48 hours. All Specime... 09/11/21 Blood Culture - Preliminary, Resulted No Growth after 48 hours. All Specime... 09/11/21 Malaria Smear ([facility]) - Final, Complete Plasmodium Falciparum Discharge Medications Scheduled Atovaquone/Proguanil HCl (Atovaquone-Proguanil 250-100) 1 Each Tablet, 4 TAB PO DAILY Scheduled PRN Acetaminophen (Acetaminophen) 500 Mg Tablet, 1,000 MG PO Q6H PRN for Pain or fever Allergies Coded Allergies: No Known Allergies (Unverified , 11/22/20) SARAH LOPEZ DO Sep 13, 2021 22:55
== END 2021-09-13 12:23 | disposition home or self-care (01) | DRG 868 ==
LOC: M ED 22:54 → M ED INP 09-11 12:20 → ENRESERV 09-11 13:32 → M MSPAV 09-11 14:36
PROVIDERS: ADMIT Internal Medicine; ATTEND Internal Medicine
DX: B50.9 Plasmodium falciparum malaria, unspecified (principal); R17 Unspecified jaundice; R63.0 Anorexia; Z20.822 Contact with and (suspected) exposure to COVID-19; Z79.891 Long term (current) use of opiate analgesic

== ENCOUNTER 2024-11-09 11:01 | Emergency (ER) | payer OTHER ==
[~2024-11-09] VITALS: Ht 170.2 cm; Wt 81.0 kg
[~2024-11-09 11:01] MED LIST changes: +ACET-683 PO; +ATOV1TAB PO
[2024-11-09] MEDS: ACETAMINOPHEN 500 MG TAB PO ONE (11:33)
[2024-11-09] MEDS: IPRATROPIUM 0.5MG/ALBUTEROL 2.5MG INH SOL UD 3ML (DUONEB) NEB ONE (14:23)
[2024-11-09 14:51] VITALS: BP 118/68; TEMP 98.5; O2SAT 99
[2024-11-09] MEDS ORDERED: OSEL75CA PO (14:53)
[2024-11-09] MEDS ORDERED: BREAMIS10 MC (14:54)
[2024-11-09] MEDS ORDERED: VENTAER INH (14:54)
== END 2024-11-09 15:05 | disposition home or self-care (01) ==
LOC: M ED 11:01
DX: J09.X2 Influenza due to identified novel influenza A virus with other respiratory manifestations (principal); Z11.52 Encounter for screening for COVID-19